=== PATIENT | male | born 1995 | race Caucasian/White ===

== ENCOUNTER 2017-06-08 22:59 | Emergency (ER) | payer SELFPAY ==
[~2017-06-08] VITALS: Ht 167.6 cm; Wt 70.3 kg
[~2017-06-08 22:59] MED LIST: AUGMENTIN ES-6050 ML PO; CLARITIN10 MG PO; CLARITIN5 MG/5 ML PO; CLEOCIN150 MG PO; MYCOLOG CREAM 115 GM T; NAPROSYN500 MG PO; NKHM; Peridex 473 ML473 ML PO
[2017-06-08 23:06] VITALS: BP 149/70
[2017-06-08] MEDS ORDERED: CLINDAMYCIN HC300 MG PO ×2 (23:39→23:40)
== END 2017-06-08 23:46 | disposition home or self-care (01) ==
LOC: ED 22:59
DX: S61.411A Laceration without foreign body of right hand, initial encounter (principal); F17.200 Nicotine dependence, unspecified, uncomplicated; Z88.0 Allergy status to penicillin; W45.8XXA Other foreign body or object entering through skin, initial encounter; Y93.E5 Activity, floor mopping and cleaning; Y92.090 Kitchen in other non-institutional residence as the place of occurrence of the external cause; Y99.9 Unspecified external cause status

== ENCOUNTER 2017-06-21 10:18 | Emergency (ER) | payer SELFPAY ==
[~2017-06-21] VITALS: Ht 170.1 cm; Wt 86.2 kg
[~2017-06-21 10:18] MED LIST changes: +CLINDAMYCIN HC300 MG PO
[2017-06-21 10:55] VITALS: BP 132/64
== END 2017-06-21 11:11 | disposition home or self-care (01) ==
LOC: ED 10:18
DX: S61.411D Laceration without foreign body of right hand, subsequent encounter (principal); F17.200 Nicotine dependence, unspecified, uncomplicated; F10.10 Alcohol abuse, uncomplicated; Z79.899 Other long term (current) drug therapy; Z88.0 Allergy status to penicillin; X58.XXXD Exposure to other specified factors, subsequent encounter

== ENCOUNTER 2018-01-13 11:49 | Emergency (ER) | payer SELFPAY ==
[~2018-01-13] VITALS: Ht 172.7 cm; Wt 74.8 kg
[2018-01-13 11:52] VITALS: BP 130/71
== END 2018-01-13 12:12 | disposition home or self-care (01) ==
LOC: ED 11:49
DX: S09.8XXA Other specified injuries of head, initial encounter (principal); Z79.899 Other long term (current) drug therapy; Z88.0 Allergy status to penicillin; Y04.0XXA Assault by unarmed brawl or fight, initial encounter; Y93.89 Activity, other specified; Y92.89 Other specified places as the place of occurrence of the external cause; Y99.8 Other external cause status

== ENCOUNTER 2019-05-04 17:31 | Emergency (ER) | payer SELFPAY ==
[~2019-05-04] VITALS: Ht 170.1 cm; Wt 72.6 kg
[2019-05-04 17:32] VITALS: BP 133/79
[2019-05-04] MEDS ORDERED: PREDNISONE50 MG PO (18:06)
== END 2019-05-04 18:12 | disposition home or self-care (01) ==
LOC: ED 17:31
DX: L25.9 Unspecified contact dermatitis, unspecified cause (principal); Z88.0 Allergy status to penicillin

== ENCOUNTER 2019-12-31 19:18 | Emergency (ER) | payer SELFPAY ==
[~2019-12-31] VITALS: Ht 170.1 cm; Wt 74.8 kg
[~2019-12-31 19:18] MED LIST changes: +PREDNISONE50 MG PO
[2019-12-31 19:31] VITALS: BP 132/61
[2019-12-31] MEDS ORDERED: AUGMENTIN 875875 MG PO (20:15)
== END 2019-12-31 20:45 | disposition home or self-care (01) ==
LOC: ED 19:18
DX: K05.319 Chronic periodontitis, localized, unspecified severity (principal); K12.2 Cellulitis and abscess of mouth; F17.200 Nicotine dependence, unspecified, uncomplicated; Z71.6 Tobacco abuse counseling; Z88.0 Allergy status to penicillin

== ENCOUNTER 2022-02-23 19:45 | Emergency (ER) | payer BC ==
[~2022-02-23] VITALS: Ht 172.7 cm; Wt 77.1 kg
[~2022-02-23 19:45] MED LIST changes: +AUGMENTIN 875875 MG PO
[2022-02-23 19:47] VITALS: BP 134/56
== END 2022-02-23 20:25 | disposition home or self-care (01) ==
LOC: ED 19:45
DX: K08.89 Other specified disorders of teeth and supporting structures (principal); Z88.0 Allergy status to penicillin

== ENCOUNTER 2023-05-29 19:18 | Emergency (ER) | payer BC ==
[~2023-05-29] VITALS: Ht 167.6 cm; Wt 59.0 kg
[2023-05-29 20:40] VITALS: BP 129/74
[2023-05-29] MEDS ORDERED: ONDANSETRON4 MG SL (20:55)
== END 2023-05-29 21:13 | disposition home or self-care (01) ==
LOC: ED 19:18
DX: R11.0 Nausea (principal); F11.90 Opioid use, unspecified, uncomplicated; Z88.0 Allergy status to penicillin